=== PATIENT | female | born 1940 | race Caucasian/White ===

== ENCOUNTER 2021-04-12 18:58 | Emergency (ER) | payer MEDICAID, SELFPAY ==
[2021-04-12 19:05] VITALS: BP 138/72; PULSE 72; RESP 16; TEMP 36.8; O2SAT 97; BMI 19.5
--- NOTE | 2021-04-12 19:16 | W.ED.GENADLT ---
Documented by User: Elaina Graham MD 04/22/21 23:45 HPI - General Adult General: Chief complaint: Neck Pain/Injury Stated complaint: neck pain, n/v Time Seen by Provider: 04/12/21 19:16 History of Present Illness: HPI narrative: Patient is an 80-year-old female with no known past medical history presents emergency room with 3 days of persistent bilateral neck pain. Patient tells me she woke up 3 days ago with complaints of bilateral neck pain. Patient has pain with turning of head to either direction. Patient denies any fall, injuries, history of aneurysm, fever/chills, focal weakness, or numbness. Patient went to see her primary care provider was right muscle relaxer. Patient's pain has not improved and presents to the emergency room for evaluation. Patient has no associated chest pain, shortness breath, palpitation, abdominal complaints, nausea/vomiting, diarrhea, melena/hematochezia, complaints, headache, photophobia slurring of speech, facial droop or focal weakness. Onset: 3 days ago Duration:3 days Location:home Severity:moderate Review of Systems Narrative: Constitutional: No fever, no chills. HEENT: No vision changes, +neck pain b/l CV: No chest pain, no palpitations PULM: no cough, no dyspnea. GI: No abdominal pain, no N/V/D. : No dysuria MSKEL: No muscle pain SKIN: No new rashes, no lesions. NEURO: No headache, no focal weakness. HEME: No visible bruises PSYCH: Normal mood Physical Exam Narrative: EXAM NARRATIVE: Head: Atraumatic Eyes: PERRL, conjunctiva without injection ENT: Mucous membrane moist NECK: Supple, ROM intact, mild pain with turning of the neck, no meningismus LUNGS: LCTAB, no crackles/rhonchi CV: RRR ABDOMEN: Soft, nontender in all quadrants EXTREMITY: Normal ROM SKIN: No rash or erythema NEURO: Mental status? Awake, alert, and oriented to self, year, month, location, and situation.? Following simple axial and appendicular commands.? Has appropriate fund of knowledge, comprehension, and insight.? Able to recall and understands pertinent aspects of medical history and current treatment status.? ? Language? Speech is fluent without word-finding difficulties.? Intact naming, expression, shredder picker, and repetition.? ? Cranial nerves? 2,3,4,6: PERRL, EOMI with no nystagmus. 5: Intact sensation to light touch, symmetric? 7: Smile symmetrical, no facial droop.? 8: Hearing grossly intact.? 9,10: Normal palate movement.? 11: Normal strength in trapezius bilaterally 12: Tongue protrudes midline.? ? Motor examination? Normal bulk & tone. Strength as follows (R/L): Delts (5/5), Biceps (5/5), Triceps (5/5), Wrist ext (5/5), hip flexors (5/5), plantarflexors (5/5), dorsiflexors (5/5). Sensation? Light Touch: Grossly intact and equal in upper and lower extremities bilaterally? Romberg: Negative.? Distal joint position sense intact ? Coordination? [id number]-finger movements intact without dysmetria or past-pointing.? Rapid fingertaps: preserved amplitude without decriment.? No tremor, myoclonus or truncal ataxia.? ? Gait/stance? Steady, normal narrow base gait with appropriate arm swing and turning.? Tandem gait without hesitation or loss of balance. PSYCH: Normal mood and affect Course Vital Signs: Vital signs: Vital Signs Temperature 98.3 F 04/12/21 19:05 Pulse Rate 72 04/13/21 01:02 Respiratory Rate 17 04/13/21 01:02 Blood Pressure 127/78 04/13/21 01:02 Pulse Oximetry 99 04/13/21 01:02 MDM - General Adult MDM Narrative: Medical decision making narrative: 80-year-old female presents emergency room with concerns of bilateral neck pain x3 days not improving with muscle relaxer. Exam, patient is hemodynamically stable, afebrile, no signs of meningismus on exam. Neuro exam is intact. No suspicion for ACS or unstable angina at this time. No suspicion for acute stroke. CTA neck and neck did not show any signs of any dissection, or acute vascular occlusion. At the present time given the fact the patient is afebrile, does not have leukocytosis, do not suspect this is meningitis. Also no suspicion of subarachnoid bleed given no aneurysms on CT report. Rx lidocaine patch, menthol, and tylenol PRN pain Disposition: Discharge. Patient counseled regarding diagnostic impression, treatment plan. Patient given ED strict return precautions to return for continuation, worsening, or development of new symptoms. Instructed to f/u w/ PCP regarding symptoms today. Patient verbalized understanding. Lab Data: Labs: Lab Results 04/12/21 04/12/21 23:20 23:20 WBC 4.7 10^3/uL 10^3/ uL (4.0-10.0) RBC 4.48 10^6/uL 10^6 /uL (4.1-5.3) Hgb 11.3 g/dL L g/dL (11.5-15.3) Hct 35.3 % L % (37.0-47.0) MCV 78.8 fl L fl (81-99) MCH 25.2 pg L pg (28.0-34.0) MCHC 32.0 g/dL g/dL (30.0-36.0) RDW 15.7 % H % (12.1-15.1) Plt Count 227 10^3/cmm 10^3 /cmm (130-400) MPV 10.1 fL fL (7.4-10.4) Neut % (Auto) 77.8 % % Lymph % (Auto) 16.0 % % [place] % (Auto) 5.6 % % Eos % (Auto) 0.0 % % Baso % (Auto) 0.2 % % Neut # (Auto) 3.64 10^3/uL 10^3 /uL (1.8-7.7) Lymph # (Auto) 0.8 10^3/uL 10^3/ uL (0.8-4.8) [place] # (Auto) 0.3 10^3/uL 10^3/ uL (0.2-0.9) Eos # (Auto) 0.0 10^3/uL 10^3/ uL (0.0-0.8) Baso # (Auto) 0.0 10^3/uL 10^3/ uL (0.0-0.1) Nucleated RBC % (a uto) 0 % % Nucleated RBCs # 0.0 /100WBC /100W BC Sodium 141 mmol/L mmol/L (136-145) Potassium 3.7 mmol/L mmol/L (3.5-5.1) Chloride 106 mmol/L mmol/L (98-107) Carbon Dioxide 24 mmol/L mmol/L (22-29) Anion Gap 14.7 (5-19) BUN 10 mg/dL mg/dL (8-23) Creatinine 0.6 mg/dL mg/dL (0.5-0.9) GFR Calculation Not Reportable Glucose 103 mg/dL mg/dL (65-115) Calculated Osmolal ity 291 mOsm/kg mOsm/ kg (285-295) Calcium 8.8 mg/dL mg/dL (8.5-10.5) Discharge Plan Discharge Patient Disposition: Home Clinical Impression: Neck pain Condition: Stable Discharge Orders: Discharge ED (Routine); Ordered 04/13/21 Ordered By: Ralf Summers Referrals: Glai Figueroa FNP [Primary Care Provider] - 1-3 days Discharge Diet: Advance as tolerated Discharge Activity: Resume usual activity Patient Instructions: Neck Pain (ED) Activity Restrictions/Additional Instructions: Return for fever greater than 100, worsening pain despite treatment, loss of strength in upper or lower extremities, other concerning symptoms. Coding Level of Care Code ED Electronic Integrated Systems Mechanic for Chg Fwd Documented by User: Ralf Summers DO 04/13/21 01:29 HPI - General Adult General: Chief complaint: Neck Pain/Injury Stated complaint: neck pain, n/v Time Seen by Provider: 04/12/21 19:16 Course Vital Signs: Vital signs: Vital Signs Temperature 98.3 F 04/12/21 19:05 Pulse Rate 72 04/13/21 01:02 Respiratory Rate 17 04/13/21 01:02 Blood Pressure 127/78 04/13/21 01:02 Pulse Oximetry 99 04/13/21 01:02 MDM - General Adult MDM Narrative: Medical decision making narrative: See above. Lab Data: Labs: Lab Results 04/12/21 04/12/21 23:20 23:20 WBC 4.7 10^3/uL 10^3/ uL (4.0-10.0) RBC 4.48 10^6/uL 10^6 /uL (4.1-5.3) Hgb 11.3 g/dL L g/dL (11.5-15.3) Hct 35.3 % L % (37.0-47.0) MCV 78.8 fl L fl (81-99) MCH 25.2 pg L pg (28.0-34.0) MCHC 32.0 g/dL g/dL (30.0-36.0) RDW 15.7 % H % (12.1-15.1) Plt Count 227 10^3/cmm 10^3 /cmm (130-400) MPV 10.1 fL fL (7.4-10.4) Neut % (Auto) 77.8 % % Lymph % (Auto) 16.0 % % [place] % (Auto) 5.6 % % Eos % (Auto) 0.0 % % Baso % (Auto) 0.2 % % Neut # (Auto) 3.64 10^3/uL 10^3 /uL (1.8-7.7) Lymph # (Auto) 0.8 10^3/uL 10^3/ uL (0.8-4.8) [place] # (Auto) 0.3 10^3/uL 10^3/ uL (0.2-0.9) Eos # (Auto) 0.0 10^3/uL 10^3/ uL (0.0-0.8) Baso # (Auto) 0.0 10^3/uL 10^3/ uL (0.0-0.1) Nucleated RBC % (a uto) 0 % % Nucleated RBCs # 0.0 /100WBC /100W BC Sodium 141 mmol/L mmol/L (136-145) Potassium 3.7 mmol/L mmol/L (3.5-5.1) Chloride 106 mmol/L mmol/L (98-107) Carbon Dioxide 24 mmol/L mmol/L (22-29) Anion Gap 14.7 (5-19) BUN 10 mg/dL mg/dL (8-23) Creatinine 0.6 mg/dL mg/dL (0.5-0.9) GFR Calculation Not Reportable Glucose 103 mg/dL mg/dL (65-115) Calculated Osmolal ity 291 mOsm/kg mOsm/ kg (285-295) Calcium 8.8 mg/dL mg/dL (8.5-10.5) Discharge Plan Discharge Patient Disposition: Home Clinical Impression: Neck pain Condition: Stable Discharge Orders: Discharge ED (Routine); Ordered 04/13/21 Ordered By: Ralf Summers Referrals: Gali Figueroa FNP [Primary Care Provider] - 1-3 days Discharge Diet: Advance as tolerated Discharge Activity: Resume usual activity Patient Instructions: Neck Pain (ED) Activity Restrictions/Additional Instructions: Return for fever greater than 100, worsening pain despite treatment, loss of strength in upper or lower extremities, other concerning symptoms. Coding Level of Care Code ED Electronic Integrated Systems Mechanic for Kaleb Patino
[2021-04-12 20:52] VITALS: BP 139/86; PULSE 69; RESP 18; O2SAT 100
--- NOTE | 2021-04-12 21:12 | CTR_ITS ---
PROCEDURE INFORMATION: Exam: CT Head Without Contrast Exam date and time: 04/12/2021 9:12 PM Age: 80 years old Clinical indication: Other: Neck pain; Additional info: Eval brain bleed TECHNIQUE: Imaging protocol: Computed tomography of the head without contrast. Radiation optimization: All CT scans at this facility use at least one of these dose optimization techniques: automated exposure control; mA and/or kV adjustment per patient size (includes targeted exams where dose is matched to clinical indication); or iterative reconstruction. COMPARISON: No relevant prior studies available. RADIATION DOSE METRICS: Total DLP (mGy-cm): 738.34 FINDINGS: Brain: Diffuse moderate cerebral age related volume loss. Moderate patchy low attenuation in the white matter compatible with moderate chronic small vessel ischemic disease. No midline shift, mass, fluid collection, or evidence of hemorrhage. Cerebral ventricles: Ventricular enlargement proportional to volume loss. Paranasal sinuses: Visualized sinuses are unremarkable. No fluid levels. Mastoid air cells: Visualized mastoid air cells are well aerated. Orbital cavity: Right globe possible silicone injection chronic deformity. Bones/joints: Unremarkable. No acute fracture. Soft tissues: Unremarkable. CT/CT head wo con* [id number] IMPRESSION: Moderate involutional changes, no acute intracranial abnormality. Radiation Dose CTDIVOL = (mGy): DLP = 738.34 (mGy-cm)
--- NOTE | 2021-04-12 21:12 | CTR_ITS ---
PROCEDURE INFORMATION: Exam: CT Angiography Head With Contrast, Arteriography Exam date and time: 04/12/2021 9:12 PM Age: 80 years old Clinical indication: Other: Neck pain; Additional info: Eval sah and dissection TECHNIQUE: Imaging protocol: Computed tomography angiography of the head with contrast. Exam focused on the arteries. 3D rendering (Not supervised by radiologist): MIP and/or 3D reconstructed images were created by the technologist. Radiation optimization: All CT scans at this facility use at least one of these dose optimization techniques: automated exposure control; mA and/or kV adjustment per patient size (includes targeted exams where dose is matched to clinical indication); or iterative reconstruction. Contrast material: OMNI 350; Contrast volume: 75 ml; Contrast route: INTRAVENOUS (IV); COMPARISON: CT head wo con* [id number] 2021-04-13 00:17 RADIATION DOSE METRICS: Total DLP (mGy-cm): 943.94 FINDINGS: ANTERIOR CIRCULATION: Right internal carotid artery: Unremarkable. Intracranial segment is patent with no significant stenosis. No aneurysm. Right middle cerebral artery: Mild right MCA atherosclerotic narrowing. Right anterior cerebral artery: Unremarkable. No occlusion or significant stenosis. No aneurysm. Left internal carotid artery: Unremarkable. Intracranial segment is patent with no significant stenosis. No aneurysm. Left middle cerebral artery: Minimal left MCA atherosclerotic narrowing. Left anterior cerebral artery: Unremarkable. No occlusion or significant stenosis. No aneurysm. POSTERIOR CIRCULATION: Right vertebral artery: Unremarkable. No occlusion or significant stenosis. No aneurysm. Left vertebral artery: Unremarkable. No occlusion or significant stenosis. No aneurysm. Basilar artery: Unremarkable. No occlusion or significant stenosis. No aneurysm. Right posterior cerebral artery: Unremarkable. No occlusion or significant stenosis. No aneurysm. Left posterior cerebral artery: Unremarkable. No occlusion or significant stenosis. No aneurysm. Brain: No definite mass, mass effect, or midline shift. Cerebral ventricles: No ventriculomegaly. Bones/joints: Unremarkable. No acute fracture. Soft tissues: Unremarkable. Dental: Severe dental disease. IMPRESSION: 1. No large vessel occlusion or significant high-grade stenosis. 2. Severe dental disease. PROCEDURE INFORMATION: Exam: CT Angiography Neck With Contrast Exam date and time: 04/12/2021 9:12 PM Age: 80 years old Clinical indication: Other: Neck pain; Additional info: Eval sah and dissection TECHNIQUE: Imaging protocol: Computed tomography angiography of the neck with contrast. 3D rendering (Not supervised by radiologist): MIP and/or 3D reconstructed images were created by the technologist. Radiation optimization: All CT scans at this facility use at least one of these dose optimization techniques: automated exposure control; mA and/or kV adjustment per patient size (includes targeted exams where dose is matched to clinical indication); or iterative reconstruction. Contrast material: OMNI 350; Contrast volume: 75 ml; Contrast route: INTRAVENOUS (IV); COMPARISON: CT head wo con* [id number] 2021-04-13 00:17 RADIATION DOSE METRICS: Total DLP (mGy-cm): 943.94 FINDINGS: Right common carotid artery: No stenosis. No dissection or occlusion. Right internal carotid artery: No stenosis of the extracranial segment. No dissection or occlusion. Right external carotid artery: No occlusion or stenosis of the origin. Left common carotid artery: Mild soft plaque in the distal left common carotid artery. Left internal carotid artery: No stenosis of the extracranial segment. No dissection or occlusion. Left external carotid artery: No occlusion or stenosis of the origin. Right vertebral artery: No stenosis. No dissection or occlusion. Left vertebral artery: No stenosis. No dissection or occlusion. Soft tissues: Normal. No significant soft tissue swelling. Bones/joints: No acute fracture. CT/CT angio headneck* [id number] IMPRESSION: No acute abnormality. REFERENCES: NASCET CRITERIA. The degree of internal carotid artery stenosis is based on NASCET criteria. Normal is no stenosis. Mild is less than 50% stenosis. Moderate is 50-69% stenosis. Severe is 70% to 99% stenosis. Total occlusion is no detectable patent lumen. Radiation Dose CTDIVOL = (mGy): DLP = 943.94~943.94 (mGy-cm)
[2021-04-12] MEDS: acetaminophen 500 mg Tablet 1000 MG PO (21:23)
[2021-04-12 23:24] LABS: Basophils % 0.2 %; Hematocrit 35.3 % (37.0-47.0); Hemoglobin 11.3 g/dL (11.5-15.3); Lymphocytes # 0.8 10^3/uL (0.8-4.8); Mean Corpuscular Hemoglobin 25.2 pg (28.0-34.0); Mean Corpuscular Volume 78.8 fl (81-99); Mean Platelet Volume 10.1 fL (7.4-10.4); Monocytes # 0.3 10^3/uL (0.2-0.9); Monocytes % 5.6 %; Neutrophils # 3.64 10^3/uL (1.8-7.7); Neutrophils % 77.8 %; Nucleated Red Blood Cells % 0 %; Platelet Count 227 10^3/cmm (130-400); Red Blood Count 4.48 10^6/uL (4.1-5.3); Red Cell Distribution Width 15.7 % (12.1-15.1); White Blood Count 4.7 10^3/uL (4.0-10.0)
[2021-04-12 23:44] LABS: Anion Gap 14.7 (5-19); Blood Urea Nitrogen 10 mg/dL (8-23); Calcium 8.8 mg/dL (8.5-10.5); Carbon Dioxide 24 mmol/L (22-29); Chloride 106 mmol/L (98-107); Glucose 103 mg/dL (65-115); Osmolality Calculated 291 mOsm/kg (285-295); Potassium 3.7 mmol/L (3.5-5.1); Sodium 141 mmol/L (136-145)
[2021-04-12 23:59] VITALS: BP 117/65; PULSE 65; RESP 17; O2SAT 99
[2021-04-13] MEDS: iohexol 350 mg/mL 100 mL Btl IV (00:23)
[2021-04-13 01:02] VITALS: BP 127/78; PULSE 72; RESP 17; O2SAT 99
== END 2021-04-13 01:18 | disposition home or self-care (01) ==
PROVIDERS: Emergency Medicine; Emergency Provider Emergency Medicine; PCP Nurse Practitioner
DX: M54.2 Cervicalgia (principal)
CPT/HCPCS: 70450; 70496; 70498; 80048; 85025; 99283; Q9967

== ENCOUNTER 2021-10-24 09:54 | Emergency (ER) | payer MEDICAID, SELFPAY ==
[2021-10-24 10:00] VITALS: BP 151/76; PULSE 78; RESP 14; TEMP 36.2; O2SAT 98
--- NOTE | 2021-10-24 10:00 | CTR_ITS ---
PROCEDURE INFORMATION: Exam: CT Abdomen And Pelvis Without Contrast Exam date and time: 10/24/2021 10:21 AM Age: 81 years old Clinical indication: Abdominal pain; Localized; Left lower quadrant (llq); Additional info: Llq pain TECHNIQUE: Imaging protocol: Computed tomography of the abdomen and pelvis without contrast. Radiation optimization: All CT scans at this facility use at least one of these dose optimization techniques: automated exposure control; mA and/or kV adjustment per patient size (includes targeted exams where dose is matched to clinical indication); or iterative reconstruction. COMPARISON: CR Abdomen Series Acute [id number] 12/29/2017 11:48 AM RADIATION DOSE METRICS: Total DLP (mGy-cm): 498.15 FINDINGS: Lungs: Calcified granuloma in the right lower lobe. Diaphragm: Large hiatal hernia. Liver: Normal. No mass. Gallbladder and bile ducts: Normal. No calcified stones. No ductal dilation. Pancreas: Normal. No ductal dilation. Spleen: Normal. No splenomegaly. Adrenal glands: Normal. No mass. Kidneys and ureters: Tiny nonobstructing right renal calculi. Mild left hydroureteronephrosis secondary to a 2 mm calculus at the left ureterovesical junction. A parenchymal calcification is seen in the left kidney. Stomach and bowel: Unremarkable. No obstruction. No mucosal thickening. Appendix: No evidence of appendicitis. Intraperitoneal space: Unremarkable. No free air. No significant fluid collection. Vasculature: Unremarkable. No abdominal aortic aneurysm. Lymph nodes: Unremarkable. No enlarged lymph nodes. Urinary bladder: Unremarkable as visualized. Reproductive: Calcified uterine fibroids. Bones/joints: Osteopenia. Remote compression fracture involving the superior endplate of L1. Soft tissues: Unremarkable. CT/CT kidney stone [id number] IMPRESSION: Mild left hydroureteronephrosis secondary to a 2 mm calculus at the left ureterovesical junction.
--- NOTE | 2021-10-24 10:03 | ED_ITS ---
HPI - Abdominal Pain General: Chief Complaint: Abdominal Pain Stated Complaint: LLQ ABD PAIN Time Seen by Provider: 10/24/21 09:57 Source: patient and EMS Mode of arrival: EMS Limitations: no limitations History of Present Illness: 81-year-old female who states this morning she started having severe left lower quadrant left flank pain. States that it lasted roughly 4 hours she called EMS but she states that since last 30 minutes to an hour she has been completely pain-free. States the pain just suddenly resolved she had no pain she has had some difficulty urinating no vomiting no diarrhea no fever. Associated Symptoms: Denies chills, dysuria and fever(s) Review of Systems Const: Denies: fever(s), chills, body aches or change in appetite Eyes: Denies: blurry vision or eye discomfort ENMT: Denies: throat pain or dental pain Card: Denies: chest pain Resp: Denies: dyspnea GI: Reports: abdominal pain : Denies: dysuria Musc: Denies: neck pain or back pain Skin/Breast: Denies: rash Neuro: Denies: headache(s) Psych: Denies: depression Antony/Lymph: Denies: easy bruising All/Imm: Denies: urticaria PFSH ED PFSH: Medical History (Updated 10/24/21 @ 10:57 by Nohemi Hull MD) No pertinent past medical history Social History (Updated 10/24/21 @ 10:04 by Nohemi Hull MD) Substance/Drug Use: never Physical Exam Const: COMMON NORMALS: no acute distress, patient oriented x3 and healthy appearing HENMT: COMMON NORMALS: normocephalic and atraumatic HEAD & SCALP: normocephalic and atraumatic Eye: COMMON NORMALS: Equal, round and reactive pupils present and EOMs intact bilaterally PUPIL: Yes Equal, round and reactive pupils present Neck/C-Spine: COMMON NORMALS: full ROM and supple Chest: COMMONS NORMALS: normal inspection of the chest and normal palpation of entire chest wall Resp: COMMON NORMALS: normal respiratory effort, No retractions, No use of accessory muscles and clear to auscultation bilaterally AUSCULTATION: clear to auscultation bilaterally Cardio: COMMON NORMALS: regular rate, regular rhythm and No murmurs present (Cardio) RATE: regular rate RHYTHM: regular rhythm GI: COMMON NORMALS: Normal to inspection, nondistended, normoactive bowel sounds present, Soft to palpation, non-tender and no masses PALPATION: Yes Soft to palpation Extremity: COMMON NORMALS: normal to inspection and full ROM Neuro: COMMON NORMALS: patient oriented x3, moves all extremities and no focal motor deficits Psych: COMMON NORMALS: mental status grossly normal, Normal thought process present and cooperative THOUGHT PROCESS: Normal thought process present Skin: COMMON NORMALS: no rashes or lesions noted and no wounds GENERAL SKIN EXAM: no rashes or lesions noted Course Vital Signs: Vital signs: Vital Signs Temperature 97.1 F L 10/24/21 10:00 Pulse Rate 78 10/24/21 10:00 Respiratory Rate 14 10/24/21 10:00 Blood Pressure 151/76 10/24/21 10:00 Pulse Oximetry 98 10/24/21 10:00 MDM - Abdominal Pain Medical Decision Making Patient presents here with kidney stone. Her pain has been resolved here she is well-appearing here no signs of UTI she is stable for discharge follow-up with her PCP and return if worsening she understands agrees to plan. Lab Data : 10/24/21 10:30 10/24/21 10:30 Labs/Radiology: Radiology Impressions Abdomen/Pelvis CT 10/24/21 10:00 IMPRESSION: Mild left hydroureteronephrosis secondary to a 2 mm calculus at the left ureterovesical junction. Laboratory Results WBC 6.6 10^3/uL (4.0-10.0) 10/24/21 10:30 RBC 4.87 10^6/uL (4.1-5.3) 10/24/21 10:30 Hgb 12.6 g/dL (11.5-15.3) 10/24/21 10:30 Hct 39.1 % (37.0-47.0) 10/24/21 10:30 MCV 80.3 fl (81-99) L 10/24/21 10:30 MCH 25.9 pg (28.0-34.0) L 10/24/21 10:30 MCHC 32.2 g/dL (30.0-36.0) 10/24/21 10:30 RDW 21.4 % (12.1-15.1) H 10/24/21 10:30 Plt Count 259 10^3/cmm (130-400) 10/24/21 10:30 MPV 9.5 fL (7.4-10.4) 10/24/21 10:30 Neut % (Auto) 82.7 % 10/24/21 10:30 Lymph % (Auto) 12.3 % 10/24/21 10:30 [place] % (Auto) 3.8 % 10/24/21 10:30 Eos % (Auto) 0.3 % 10/24/21 10:30 Baso % (Auto) 0.3 % 10/24/21 10:30 Neut # (Auto) 5.44 10^3/uL (1.8-7.7) 10/24/21 10:30 Lymph # (Auto) 0.8 10^3/uL (0.8-4.8) 10/24/21 10:30 [place] # (Auto) 0.3 10^3/uL (0.2-0.9) 10/24/21 10:30 Eos # (Auto) 0.0 10^3/uL (0.0-0.8) 10/24/21 10:30 Baso # (Auto) 0.0 10^3/uL (0.0-0.1) 10/24/21 10:30 Nucleated RBC % (auto) 0 % 10/24/21 10:30 Nucleated RBCs # 0.0 /100WBC 10/24/21 10:30 Sodium 142 mmol/L (136-145) 10/24/21 10:30 Potassium 4.1 mmol/L (3.5-5.1) 10/24/21 10:30 Chloride 106 mmol/L (98-107) 10/24/21 10:30 Carbon Dioxide 23 mmol/L (22-29) 10/24/21 10:30 Anion Gap 17.1 (5-19) 10/24/21 10:30 BUN 17 mg/dL (8-23) 10/24/21 10:30 Creatinine 1.0 mg/dL (0.5-0.9) H 10/24/21 10:30 GFR Calculation Not Reportable 10/24/21 10:30 Glucose 130 mg/dL (65-115) H 10/24/21 10:30 Calculated Osmolality 297 mOsm/kg (285-295) H 10/24/21 10:30 Calcium 9.1 mg/dL (8.5-10.5) 10/24/21 10:30 Total Bilirubin 0.2 mg/dL (0.15-1.2) 10/24/21 10:30 AST 14 U/L (0-32) 10/24/21 10:30 ALT 16 U/L (0-33) 10/24/21 10:30 Alkaline Phosphatase 74 IU/L (35-105) 10/24/21 10:30 Total Protein 6.8 g/dL (6.6-8.7) 10/24/21 10:30 Albumin 4.3 g/dL (3.5-5.2) 10/24/21 10:30 Globulin 2.5 g/dL (1.3-4.6) 10/24/21 10:30 Lipase 46 U/L (13-60) 10/24/21 10:30 Urine Color Yellow (Yellow) 10/24/21 11:04 Urine Appearance Clear (CLEAR) 10/24/21 11:04 Urine pH 6 (5-7) 10/24/21 11:04 Ur Specific [place] 1.015 (1.005-1.030) 10/24/21 11:04 Urine Protein Neg (Negative) 10/24/21 11:04 Urine Glucose (UA) Norm (Normal) 10/24/21 11:04 Urine Ketones Negative (Negative) 10/24/21 11:04 Urine Blood Neg (Negative) 10/24/21 11:04 Urine Nitrate Negative (Negative) 10/24/21 11:04 Urine Bilirubin Neg (Negative) 10/24/21 11:04 Urine Urobilinogen 1 mg/dL (Negative) H 10/24/21 11:04 Ur Leukocyte Esterase Trace (Negative) H 10/24/21 11:04 Urine RBC None /hpf (0-2) 10/24/21 11:04 Urine WBC 10-15 /hpf (0-5) H 10/24/21 11:04 Ur Squamous Epith Cells Rare /hpf (0-5) 10/24/21 11:04 Amorphous Sediment Not Reportable 10/24/21 11:04 Urine Bacteria Trace /hpf (NONE) 10/24/21 11:04 Urine Mucus Trace /hpf 10/24/21 11:04 Discharge Plan Discharge Patient Disposition: Home Clinical Impression: Kidney stone Prescriptions: New hydrocodone-acetaminophen 5-325 mg tablet 1 tab PO Q6H PRN (Reason: pain) Qty: 14 0RF ondansetron 4 mg tablet,disintegrating 4 mg PO Q6H PRN (Reason: nausea and vomiting) Qty: 14 0RF Discharge Orders: Discharge ED (Routine); Ordered 10/24/21 Ordered By: Nohemi Hull Referrals: Colin Brunner MD [Physician] - 1-3 days Gali Figueroa FNP [Primary Care Provider] - Discharge Diet: Advance as tolerated Discharge Activity: Resume usual activity Patient Instructions: Kidney Stones (ED), Opioid Safety Coding Level of Care Code ED Solar Project Engineer for Chg Fwd Exam Comprehensive
[2021-10-24 10:38] LABS: Basophils % 0.3 %; Eosinophils % 0.3 %; Hematocrit 39.1 % (37.0-47.0); Hemoglobin 12.6 g/dL (11.5-15.3); Lymphocytes # 0.8 10^3/uL (0.8-4.8); Lymphocytes % 12.3 %; Mean Corpuscular HGB Conc 32.2 g/dL (30.0-36.0); Mean Corpuscular Hemoglobin 25.9 pg (28.0-34.0); Mean Corpuscular Volume 80.3 fl (81-99); Mean Platelet Volume 9.5 fL (7.4-10.4); Monocytes # 0.3 10^3/uL (0.2-0.9); Monocytes % 3.8 %; Neutrophils # 5.44 10^3/uL (1.8-7.7); Neutrophils % 82.7 %; Nucleated Red Blood Cells % 0 %; Platelet Count 259 10^3/cmm (130-400); Red Blood Count 4.87 10^6/uL (4.1-5.3); Red Cell Distribution Width 21.4 % (12.1-15.1); White Blood Count 6.6 10^3/uL (4.0-10.0)
[2021-10-24 10:54] LABS: Alanine Aminotransferase 16 U/L (0-33); Albumin Level 4.3 g/dL (3.5-5.2); Alkaline Phosphatase 74 IU/L (35-105); Anion Gap 17.1 (5-19); Aspartate Amino Transferase 14 U/L (0-32); Blood Urea Nitrogen 17 mg/dL (8-23); Calcium 9.1 mg/dL (8.5-10.5); Carbon Dioxide 23 mmol/L (22-29); Chloride 106 mmol/L (98-107); Globulin 2.5 g/dL (1.3-4.6); Glucose 130 mg/dL (65-115); Lipase 46 U/L (13-60); Osmolality Calculated 297 mOsm/kg (285-295); Potassium 4.1 mmol/L (3.5-5.1); Sodium 142 mmol/L (136-145); Total Bilirubin 0.2 mg/dL (0.15-1.2); Total Protein 6.8 g/dL (6.6-8.7)
[2021-10-24 11:18] LABS: Add Urine Microscopic? YES; Bilirubin Urine Neg (Negative); Blood Urine Neg (Negative); Glucose Urine UA Norm (Normal); Ketones Urine Negative (Negative); Leukocyte Esterase Urine Trace (Negative); Nitrate Urine Negative (Negative); Protein Urine Neg (Negative); Specific Gravity, Urine 1.015 (1.005-1.030); Urine Appearance Clear (CLEAR); Urine Color Yellow (Yellow); Urobilinogen Urine 1 mg/dL (Negative); pH Urine 6 (5-7)
[2021-10-24 11:19] LABS: Squamous Epithelial Cell Urine RARE /hpf (0-5)
[2021-10-24 11:20] LABS: Add Urine Culture? No; Bacteria Urine TRACE /hpf; Mucus Urine TRACE /hpf
[2021-10-24 11:56] VITALS: BP 156/83; PULSE 68; RESP 17; O2SAT 94
--- NOTE | 2021-10-26 13:06 | DCPLANNER ---
Addendum entered by Analilia Armstrong 12/23/21 15:46: Patients appointment was cancelled Original Note: manager operations research had message to schedule a follow up appointment for patient with urology. manager operations research sent patients information to the front office staff at urology. Patients information will be printed and reviewed. Clinic will call patient with appointment information.
== END 2021-10-24 11:54 | disposition home or self-care (01) ==
PROVIDERS: Emergency Provider Emergency Medicine; PCP Nurse Practitioner
DX: N20.0 Calculus of kidney (principal)
CPT/HCPCS: 74176; 80053; 81001; 83690; 85025; 99283

== ENCOUNTER 2025-01-08 23:06 | Emergency (ER) | payer MEDICAID, SELFPAY ==
--- OUTSIDE RECORDS SUMMARY | 2025-01-08 23:14 | XMS_ITS | Encounter Summary ---
Author Organization [facility] Address [address] [place] [address] Care Team Providers Care Game Show Host Name Role Phone Gali Figueroa BIOMEDICAL ENGINEERING TECHNOLOGIST Primary Care Provider Encounter Details Date Type Department Care Team (Latest Contact Info) Description 10/27/[address] [facility] Ophthalmology [address] [place] [address] [place] [address] [place] [phone] Sinan Kaplan MD [address] [place] [address] [phone] Retinal Detachment with Retinal Defect, Unspecified (Primary Dx); Unspecified Senile Cataract Social History Tobacco Use Types Packs/Day Years Used Date Smoking Tobacco: Never Assessed Comments Unknown Sex and Gender Information Value Date Recorded Sex Assigned at Not on file Legal Sex Female 4:42 AM AIR DEFENSE ARTILLERY OFFICER Gender Identity Not on file Sexual Orientation Not on file documented as of this encounter Plan of Treatment Not on file documented as of this encounter Visit Diagnoses Diagnosis Retinal detachment with retinal defect, unspecified- Primary Senile cataract, unspecified documented in this encounter Care Teams Game Show Host Relationship Specialty Start Date End Date Gali Figueroa NP PCP - General NURSE PRACTITIONER 07/05/17 documented as of this encounter
--- OUTSIDE RECORDS SUMMARY | 2025-01-08 23:14 | XMS_ITS | Encounter Summary ---
Author Organization [facility] Address [address] [place] [address] Care Team Providers Care Manganese Heater Name Role Phone Gali Figueroa SAFETY LEADER Primary Care Provider +1 [phone] Encounter Details Date Type Department Care Team (Latest Contact Info) Description 11/20/2004 Outpatient Historical [facility] Ophthalmology [address] [place] [address] [place] [phone] Sinan Kaplan MD [address] [place] [address] [phone] DETACHMNT W DEFECT NOS (Primary Dx) Social History Tobacco Use Types Packs/Day Years Used Date Smoking Tobacco: Never Assessed Comments Unknown Sex and Gender Information Value Date Recorded Sex Assigned at Not on file Legal Sex Female 4:42 AM GERIATRIC SOCIAL WORKER Gender Identity Not on file Sexual Orientation Not on file documented as of this encounter Plan of Treatment Not on file documented as of this encounter Visit Diagnoses Diagnosis Retinal detachment with retinal defect, unspecified- Primary documented in this encounter Care Teams Manganese Heater Relationship Specialty Start Date End Date Gali Figueroa NP PCP - General NURSE PRACTITIONER 07/05/17 documented as of this encounter
--- OUTSIDE RECORDS SUMMARY | 2025-01-08 23:14 | XMS_ITS | Encounter Summary ---
Author Organization [facility] Address [address] [place] [address] Care Team Providers Care Anchorman Name Role Phone Gali Figueroa HAIR CLIPPER POWER Primary Care Provider [phone] [phone] Encounter Details Date Type Department Care Team (Latest Contact Info) Description 11/13/2004 Outpatient Historical [facility] Ophthalmology [address] [place] [address] [place] [address] [place] [phone] Sinan Kaplan MD [address] [place] [address] [place] [phone] DETACHMNT W DEFECT NOS (Primary Dx) Social History Tobacco Use Types Packs/Day Years Used Date Smoking Tobacco: Never Assessed Comments Unknown Sex and Gender Information Value Date Recorded Sex Assigned at Not on file Legal Sex Female 4:42 AM EVENT PLANNING INTERN Gender Identity Not on file Sexual Orientation Not on file documented as of this encounter Plan of Treatment Not on file documented as of this encounter Visit Diagnoses Diagnosis Retinal detachment with retinal defect, unspecified- Primary documented in this encounter Care Teams Anchorman Relationship Specialty Start Date End Date Gali Figueroa NP PCP - General NURSE PRACTITIONER 07/05/17 documented as of this encounter
--- OUTSIDE RECORDS SUMMARY | 2025-01-08 23:14 | XMS_ITS | Encounter Summary ---
Author Organization [facility] Address [address] [place] [address] Care Team Providers Care Bartacker Name Role Phone Gali iFgueroa NP Primary Care Provider +1 [phone] Encounter Details Date Type Department Care Team (Latest Contact Info) Description 10/16/2004 Outpatient Historical [facility] [address] [place] [address] [place] [address] Shade Kaplan MD [address] [place] [address] PREOP EXAM OTHER SPECIFIED (Primary Dx) Social History Tobacco Use Types Packs/Day Years Used Date Smoking Tobacco: Never Assessed Comments Unknown Sex and Gender Information Value Date Recorded Sex Assigned at Not on file Legal Sex Female 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 HAND SALTER Gender Identity Not on file Sexual Orientation Not on file documented as of this encounter Plan of Treatment Not on file documented as of this encounter Procedures Procedure Name Priority Date/Time Associated Diagnosis Comments CBC WITHOUT DIFFERENTIAL Routine 10/16/2004 12:32 PM CDT COMPREHENSIVE METABOLIC PANEL Routine 10/16/2004 12:32 PM CDT documented in this encounter Results * (ABNORMAL) COMPREHENSIVE METABOLIC PANEL (10/16/2004 12:32 PM CDT) GLUCOSE 135(H) 70 - 110 mg/dL INTERFACE SYSTEM BUN 12 7 - 17 mg/dL INTERFACE SYSTEM CREATININE 0.7 0.7 - 1.2 mg/dL INTERFACE SYSTEM SODIUM 141 136 - 145 mEq/L INTERFACE SYSTEM POTASSIUM 3.9 3.5 - 5.0 mEq/L INTERFACE SYSTEM CO2 25 22 - 32 mmol/l INTERFACE SYSTEM CHLORIDE 106 95 - 110 mEq/L INTERFACE SYSTEM CALCIUM 8.9 8.4 - 10.5 mg/dL INTERFACE SYSTEM ALKALINE PHOSPHATASE 77 38 - 126 IU/L INTERFACE SYSTEM TOTAL PROTEIN 7.4 6.3 - 8.2 g/dL INTERFACE SYSTEM ALBUMIN 3.8 3.5 - 5.0 g/dL INTERFACE SYSTEM AST 26 14 - 36 IU/L INTERFACE SYSTEM ALT 18 9 - 52 IU/L INTERFACE SYSTEM BILIRUBIN TOTAL 0.2 0.2 - 1.4 mg/dL INTERFACE SYSTEM GLOBULIN (CALC) 3.6 2.4 - 3.9 g/dL INTERFACE SYSTEM ANION GAP 14 9 - 20 mEq/L INTERFACE SYSTEM ALBUMIN/GLOBULIN RATIO 1.1 1.0 - 2.3 INTERFACE SYSTEM OSMOLALITY, CALCULATED 291 275 - 295 mOsm/Kg INTERFACE SYSTEM 10/16/2004 12:3 2 PM CDT us X Yina Kaplan MD CHEMISTRY ORDERABLES Final Resu lt INTERFACE SYSTEM Refer to clinic/hospital department * (ABNORMAL) CBC WITHOUT DIFFERENTIAL (10/16/2004 12:32 PM CDT) WBC 4.5(L) 4.8 - 10.8 K/ul INTERFACE SYSTEM RBC 4.37 4.20 - 5.40 Mil/ul INTERFACE SYSTEM HEMOGLOBIN 12.2 12.0 - 16.0 g/dL INTERFACE SYSTEM HEMATOCRIT 37.5 36.0 - 46.0 % INTERFACE SYSTEM MCV 85.8 84.0 - 103.0 Fl INTERFACE SYSTEM MCH 27.9 27.0 - 34.0 pg INTERFACE SYSTEM MCHC 32.5 30.0 - 35.0 g/dL INTERFACE SYSTEM RDW 13.7 11.0 - 14.5 % INTERFACE SYSTEM PLATELETS 225 140 - 440 K/ul INTERFACE SYSTEM MPV 9.6 8.9 - 12.8 Fl INTERFACE SYSTEM NEUTROPHILS 64.5 42.2 - 75.2 % INTERFACE SYSTEM LYMPHOCYTES 26.7 24.0 - 44.0 % INTERFACE SYSTEM MONOCYTES 4.2 2.0 - 10.0 % INTERFACE SYSTEM EOSINOPHILS 4.2 0.0 - 7.0 % INTERFACE SYSTEM BASOPHILS 0.4 0.0 - 1.0 % INTERFACE SYSTEM NEUTROPHIL ABSOLUTE 2.9 2.0 - 8.0 K/uL INTERFACE SYSTEM LYMPHOCYTE ABSOLUTE 1.2 1.2 - 4.0 K/ul INTERFACE SYSTEM MONOCYTE ABSOLUTE 0.2 0.1 - 0.6 K/ul INTERFACE SYSTEM EOSINOPHIL ABSOLUTE 0.2 0.0 - 0.7 K/ul INTERFACE SYSTEM BASOPHILS ABSOLUTE 0.0 0.0 - 0.2 K/ul INTERFACE SYSTEM 10/16/2004 12:3 2 PM CDT us X Yina Kaplan MD HEMATOLOGY ORDERABLES Final Res ult INTERFACE SYSTEM Refer to clinic/hospital department documented in this encounter Visit Diagnoses Diagnosis Other specified pre-operative examination- Primary documented in this encounter Care Teams Bartacker Relationship Specialty Start Date End Date Gali Figueroa NP PCP - General NURSE PRACTITIONER 07/05/17 documented as of this encounter
--- OUTSIDE RECORDS SUMMARY | 2025-01-08 23:14 | XMS_ITS | Encounter Summary ---
Author Organization [facility] Address [address] [place] [address] Care Team Providers Care Public Health Representative Name Role Phone Gali Figueroa SLIP OPERATOR Primary Care Provider [phone] [phone] Encounter Details Date Type Department Care Team (Latest Contact Info) Description 07/15/2004 Outpatient Historical [facility] Ophthalmology [address] [place] [address] [place] [address] [place] [phone] Sinan Kaplan MD [address] 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
--- OUTSIDE RECORDS SUMMARY | 2025-01-08 23:14 | XMS_ITS | Encounter Summary ---
Author Organization [facility] Address [address] [place] [address] Care Team Providers Care Interventional Cardiologist Name Role Phone Gali Figueroa UNIVERSITY EXTENSION SPECIALIST Primary Care Provider +1 [phone] Encounter Details Date Type Department Care Team (Latest Contact Info) Description 06/29/2005 Outpatient Historical [facility] Ophthalmology [address] [place] [address] [place] [address] [place] [phone] Sinan Kaplan MD [address] [place] [address] [place] [address] [phone] DETACHMNT W DEFECT NOS (Primary Dx) Social History Tobacco Use Types Packs/Day Years Used Date Smoking Tobacco: Never Assessed Comments Unknown Sex and Gender Information Value Date Recorded Sex Assigned at Not on file Legal Sex Female 4:42 AM CURRENCY EXCHANGE SPECIALIST Gender Identity Not on file Sexual Orientation Not on file documented as of this encounter Plan of Treatment Not on file documented as of this encounter Visit Diagnoses Diagnosis Retinal detachment with retinal defect, unspecified- Primary documented in this encounter Care Teams Interventional Cardiologist Relationship Specialty Start Date End Date Gali Figueroa NP PCP - General NURSE PRACTITIONER 07/05/17 documented as of this encounter
--- OUTSIDE RECORDS SUMMARY | 2025-01-08 23:14 | XMS_ITS | Clinical Summary ---
Author Organization [facility] Address [address] [facility] Attn: Epic Prelude ADT [place] [address] Care Team Providers Care Gas Adjuster Name Role Phone Gali Figueroa SPORTING GOODS SALES ASSOCIATE Primary Care Provider +1 [phone] Allergies Active Allergy Reactions Criticality Noted Date Comments Pseudoephedrine Hcl Nausea and Vomiting Low 010 Medications amLODIPine (NORVASC) 5 mg tabletIndications :Unspecified essential hypertension Take 1 Tab by mouth daily. 30 Tablet 11 07/15/2014 Active lisinopriL (PRINIVIL) 20 mg tabletIndications :Unspecified essential hypertension Take 1 Tab (20 mg) by mouth daily. 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 Unspecified essential hypertension 06/27/2012 Bilateral hand pain 06/27/2012 Osteoarthritis 06/27/2012 Family History Medical History Relation Name Comments Heart Disease Brother Cancer Father Cancer Mother Heart Disease Son High Cholesterol Son Hypertension Son Stroke Son Relation Name Status Comments Brother Father Mother Son Alive Social History Tobacco Use Types Packs/Day Years Used Date Smoking Tobacco: Never Smokeless Tobacco: Current Alcohol Use Standard Drinks/Week Comments No 0 (1 standard drink = 0.6 oz pur e alcohol) Comments Unknown Sex and Gender Information Value Date Recorded Sex Assigned at Not on file Legal Sex Female 12:28 AM CLAIM PROFESSIONAL Gender Identity Not on file Sexual Orientation Not on file Last Filed Vital Signs Vital Sign Reading Time Taken Comments Blood Pressure 128/80 10/24/2017 1:25 PM CDT Pulse 62 10/24/2017 1:25 PM CDT Temperature 35.9 C (96.6 F) 10/24/2017 1:25 PM CDT Respiratory Rate - - Oxygen Saturation - - Inhaled Oxygen Concentration - - Weight 49 kg (108 lb) 11/03/2017 12:38 PM CDT Height 162.6 cm (5' 4 ) 11/03/2017 12:38 PM CDT Body Mass Index 18.54 11/03/2017 12:38 PM CDT Plan of Treatment Health Maintenance Due Date Last Done Comments DTAP/TDAP/TD VACCINES (1 - Tdap) 1958 PNEUMOCOCCAL VACCINE 50+ YEA RS (1 of 1 - PCV) 1989 ZOSTER VACCINE (1 of 2) 1989 RSV VACCINE (60+ or ) (1 - 1-dose 75+ series) 2014 OSTEOPOROSIS SCREENING 07/10/2017 07/10/2012, 2012 INFLUENZA VACCINE (#1) 2025 Procedures Procedure Name Priority Date/Time Associated Diagnosis Comments XR DEXA BONE DENSITY AXIAL 1 OR MORE SITES Routine 07/10/2012 12:17 PM CLAIM PROFESSIONAL Osteoporosis, post-menopausal from Last 3 Months or Most Recently Relevant to Health Maintenance Results * XR DEXA BONE DENSITY AXIAL 1 OR MORE SITES (07/10/2012 12:17 PM CLAIM PROFESSIONAL) Anatomical Region Laterality Modality Other Impressions 07/10/2012 2:00 PM CLAIM PROFESSIONAL Impression: The patient demonstrates osteoporosis of the lumbar spine and significant osteopenia of the left hip. This puts her at a significant increased risk for future fragility fracture in both regions. The level of osteopenia in the lumbar spine does represent a significant acceleration of bone mineral loss for patient's age. This could be secondary to a metabolic bone disease. Further diagnostic and therapeutic measures might be considered in an effort to prevent further bone mineral loss. Consideration might also be given to repeating this examination in approximately two years. Narrative 07/10/2012 2:00 PM CLAIM PROFESSIONAL DEXA Evaluation of the Lumbar Spine and Left Proximal Femur: Reason for Consultation: Status post menopause. Evaluation of bone mineral density. The following absorptiometry data were obtained. The overall technical quality of the study is good. Serial measurement number two. 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 She has at least 43% less mineral than the mean projected for a young normal, age 20 to 40. She demonstrates marked osteopenia of the neck region and moderate to marked osteopenia of the total hip region of the left hip. Procedure Note Flynn Stephen MD - 08/08/2022 DEXA Evaluation of the Lumbar Spine and Left Proximal Femur: Reason for Consultation: Status post menopause. Evaluation of bone mineral density. The following absorptiometry data were obtained. The overall technical quality of the study is good. Serial measurement number two. 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 She has at least 43% less mineral than the mean projected for a young normal, age 20 to 40. She demonstrates marked osteopenia of the neck region and moderate to marked osteopenia of the total hip region of the left hip. IMPRESSION Impression: The patient demonstrates osteoporosis of the lumbar spine and significant osteopenia of the left hip. This puts her at a significant increased risk for future fragility fracture in both regions. The level of osteopenia in the lumbar spine does represent a significant acceleration of bone mineral loss for patient's age. This could be secondary to a metabolic bone disease. Further diagnostic and therapeutic measures might be considered in an effort to prevent further bone mineral loss. Consideration might also be given to repeating this examination in approximately two years. us Alyse Leon DO DIAGNOSTIC IMAGING OR DERABLES Final Result from Last 3 Months or Most Recently Relevant to Health Maintenance Care Teams Gas Adjuster Relationship Specialty Start Date End Date Gali Figueroa NP [address] [facility] [place] [address] PCP - General NURSE PRACTITIONER 07/05/17
--- OUTSIDE RECORDS SUMMARY | 2025-01-08 23:14 | XMS_ITS | Encounter Summary ---
Author Organization [facility] Address [address] [place] [address] Care Team Providers Care Research Compliance Specialist Name Role Phone Gali Figueroa GREEN MARKETING SPECIALIST Primary Care Provider +1 [phone] Encounter Details Date Type Department Care Team (Latest Contact Info) Description 08/06/2004 Outpatient Historical [facility] Operating Room [address] [place] [address] Shade Kaplan MD [address] [place] [address] PROLIF RETINOPATHY NEC (Primary Dx) Social History Tobacco Use Types Packs/Day Years Used Date Smoking Tobacco: Never Assessed Comments Unknown Sex and Gender Information Value Date Recorded Sex Assigned at Not on file Legal Sex Female 4:42 AM CONCRETE TECHNICIAN Gender Identity Not on file Sexual Orientation Not on file documented as of this encounter Plan of Treatment Not on file documented as of this encounter Procedures Procedure Name Priority Date/Time Associated Diagnosis Comments BASIC METABOLIC PANEL Routine 08/06/2004 7:42 AM CONCRETE TECHNICIAN documented in this encounter Results * BASIC METABOLIC PANEL (08/06/2004 7:42 AM CONCRETE TECHNICIAN) GLUCOSE 97 70 - 110 mg/dL INTERFACE SYSTEM BUN 13 7 - 17 mg/dL INTERFACE SYSTEM CREATININE 0.7 0.7 - 1.2 mg/dL (inactive) INTERFACE SYSTEM SODIUM 142 136 - 145 mEq/L INTERFACE SYSTEM POTASSIUM 4.0 3.5 - 5.0 mEq/L INTERFACE SYSTEM CHLORIDE 105 95 - 110 mEq/L INTERFACE SYSTEM CO2 28 22 - 32 mmol/l INTERFACE SYSTEM ANION GAP 13 9 - 20 mEq/L INTERFACE SYSTEM OSMOLALITY, CALCULATED 292 275 - 295 mOsm/Kg INTERFACE SYSTEM CALCIUM 9.3 8.4 - 10.5 mg/dL INTERFACE SYSTEM 08/06/2004 7:42 AM CONCRETE TECHNICIAN us X Yina Kaplan MD CHEMISTRY ORDERABLES Final Resu lt INTERFACE SYSTEM Refer to clinic/hospital department documented in this encounter Visit Diagnoses Diagnosis Other nondiabetic proliferative retinopathy- Primary documented in this encounter Care Teams Research Compliance Specialist Relationship Specialty Start Date End Date Gali Figueroa NP PCP - General NURSE PRACTITIONER 07/05/17 documented as of this encounter
--- OUTSIDE RECORDS SUMMARY | 2025-01-08 23:14 | XMS_ITS | Encounter Summary ---
Author Organization [facility] Address [address] [place] [address] Care Team Providers Care Crm Dynamics Developer Name Role Phone Gali Figueroa CORPORATE SALES MANAGER Primary Care Provider +1 [phone] Encounter Details Date Type Department Care Team (Latest Contact Info) Description 08/14/2004 Outpatient Historical [facility] Ophthalmology [address] [place] [address] [place] [address] [place] [phone] Sinan Kaplan MD [address] [place] [address] [place] [address] [phone] DETACHMNT W DEFECT NOS (Primary Dx) Social History Tobacco Use Types Packs/Day Years Used Date Smoking Tobacco: Never Assessed Comments Unknown Sex and Gender Information Value Date Recorded Sex Assigned at Not on file Legal Sex Female 4:42 AM LIBRARY CIRCULATION DEPARTMENT CHIEF Gender Identity Not on file Sexual Orientation Not on file documented as of this encounter Plan of Treatment Not on file documented as of this encounter Visit Diagnoses Diagnosis Retinal detachment with retinal defect, unspecified- Primary documented in this encounter Care Teams Crm Dynamics Developer Relationship Specialty Start Date End Date Gali Figueroa NP PCP - General NURSE PRACTITIONER 07/05/17 documented as of this encounter
--- OUTSIDE RECORDS SUMMARY | 2025-01-08 23:14 | XMS_ITS | Encounter Summary ---
Author Organization [facility] Address [address] [place] [address] Care Team Providers Care Internal Consultant Name Role Phone Gali Figueroa UNDER PRESSER Primary Care Provider +1 -[phone] Encounter Details Date Type Department Care Team (Latest Contact Info) Description 06/26/2004 Outpatient Historical [facility] Ophthalmology [address] [place] [address] [place] [address] [place] [phone] Sinan Kaplan MD [address] [place] [address] [place] [phone] DETACHMNT W DEFECT NOS (Primary Dx) Social History Tobacco Use Types Packs/Day Years Used Date Smoking Tobacco: Never Assessed Comments Unknown Sex and Gender Information Value Date Recorded Sex Assigned at Not on file Legal Sex Female 4:42 AM CASEWORKER Gender Identity Not on file Sexual Orientation Not on file documented as of this encounter Plan of Treatment Not on file documented as of this encounter Visit Diagnoses Diagnosis Retinal detachment with retinal defect, unspecified- Primary documented in this encounter Care Teams Internal Consultant Relationship Specialty Start Date End Date Gali Figueroa NP PCP - General NURSE PRACTITIONER 07/05/17 documented as of this encounter
--- OUTSIDE RECORDS SUMMARY | 2025-01-08 23:14 | XMS_ITS | Encounter Summary ---
Author Organization [facility] Address [address] [place] [address] Care Team Providers Care Computer Service Technician Name Role Phone Gali Figueroa SUPERVISOR MIRROR FABRICATION Primary Care Provider +1 -[phone] Encounter Details Date Type Department Care Team (Latest Contact Info) Description 11/19/[address] [facility] Operating Room [address] [place] [address] Shade Kaplan MD [address] [place] [address] RETINAL DETACHMENT NEC (Primary Dx) Social History Tobacco Use Types Packs/Day Years Used Date Smoking Tobacco: Never Assessed Comments Unknown Sex and Gender Information Value Date Recorded Sex Assigned at Not on file Legal Sex Female 4:42 AM VICE PRESIDENT OF SOFTWARE ENGINEERING Gender Identity Not on file Sexual Orientation Not on file documented as of this encounter Plan of Treatment Not on file documented as of this encounter Visit Diagnoses Diagnosis Other forms of retinal detachment(361.89)- Primary Other forms of retinal detachment documented in this encounter Care Teams Computer Service Technician Relationship Specialty Start Date End Date Gali Figueroa NP PCP - General NURSE PRACTITIONER 07/05/17 documented as of this encounter
--- OUTSIDE RECORDS SUMMARY | 2025-01-08 23:14 | XMS_ITS | Encounter Summary ---
Author Organization [facility] Address [address] [place] [address] Care Team Providers Care Pre Owned Sales Manager Name Role Phone Gali Figueroa CHIEF ENGINEER PRODUCTION Primary Care Provider +1 -[phone] Encounter Details Date Type Department Care Team (Latest Contact Info) Description 10/16/2004 Outpatient Historical [facility] Ophthalmology [address] [place] [address] [place] [phone] Sinan Kaplan MD [address] [place] [address] Vitreous membranes (Primary Dx); DETACHMNT W DEFECT NOS Social History Tobacco Use Types Packs/Day Years Used Date Smoking Tobacco: Never Assessed Comments Unknown Sex and Gender Information Value Date Recorded Sex Assigned at Not on file Legal Sex Female 4:42 AM OCCUPATIONAL THERAPIST REHAB MANAGER Gender Identity Not on file Sexual Orientation Not on file documented as of this encounter Plan of Treatment Not on file documented as of this encounter Visit Diagnoses Diagnosis Vitreous membranes- Primary Vitreous membranes and strands Retinal detachment with retinal defect, unspecified documented in this encounter Care Teams Pre Owned Sales Manager Relationship Specialty Start Date End Date Gali Figueroa NP PCP - General NURSE PRACTITIONER 07/05/17 documented as of this encounter
--- OUTSIDE RECORDS SUMMARY | 2025-01-08 23:14 | XMS_ITS | Encounter Summary ---
Author Organization [facility] Address [address] [place] [address] Care Team Providers Care Hardwood Floor Installer Name Role Phone Gali Figueroa NP Primary Care Provider +1 [phone] Encounter Details Date Type Department Care Team (Latest Contact Info) Description 06/25/2004 Outpatient Historical [facility] Operating Room [address] [place] [address] Shade Kaplan MD [address] [place] [address] DETACHMNT W DEFECT NOS (Primary Dx) Social History Tobacco Use Types Packs/Day Years Used Date Smoking Tobacco: Never Assessed Comments Unknown Sex and Gender Information Value Date Recorded Sex Assigned at Not on file Legal Sex Female 4:42 AM CHEF MANAGER Gender Identity Not on file Sexual Orientation Not on file documented as of this encounter Plan of Treatment Not on file documented as of this encounter Procedures Procedure Name Priority Date/Time Associated Diagnosis Comments CBC WITH DIFFERENTIAL Routine 06/25/2004 7:23 AM CHEF MANAGER PROTIME-INR Routine 06/25/2004 7:23 AM CHEF MANAGER BASIC METABOLIC PANEL Routine 06/25/2004 7:22 AM CHEF MANAGER documented in this encounter Results * PROTIME-INR (06/25/2004 7:23 AM CHEF MANAGER) PROTIME 12.6 12.4 - 14.9 Secs INTERFACE SYSTEM Comment: As of 03 note change in normal range. INR 0.9 INTERFACE SYSTEM Comment: Expected Values for INR: DVT/PE Goal INR 2.5; range 2.0 - 3.0 Valve Replacement Tissue Goal INR 2.5; range 2.0 - 3.0 Mechanical Goal INR 3.0; range 2.5 - 3.5 POST-MT Goal INR 2.5; range 2.0 - 3.0 or Goal 3.0; range 2.5 - 3.5 Atrial Fibrillation Goal INR 2.5; range 2.0 - 3.0 Ischemic Stroke Goal INR 2.5; range 2.0 - 3.0 For additional information see Guidelines for Anticoagulation available from the pharmacy [facility] 06/25/2004 7:23 AM CHEF MANAGER us X Yina Kaplan MD HEMATOLOGY ORDERABLES Final Res ult INTERFACE SYSTEM Refer to clinic/hospital department * (ABNORMAL) CBC WITH DIFFERENTIAL (06/25/2004 7:23 AM CHEF MANAGER) WBC 3.2(L) 4.8 - 10.8 K/ul INTERFACE SYSTEM RBC 4.82 4.20 - 5.40 Mil/ul INTERFACE SYSTEM HEMOGLOBIN 13.9 12.0 - 16.0 g/dL INTERFACE SYSTEM HEMATOCRIT 42.0 36.0 - 46.0 % INTERFACE SYSTEM MCV 87.1 84.0 - 103.0 Fl INTERFACE SYSTEM MCH 28.8 27.0 - 34.0 pg INTERFACE SYSTEM MCHC 33.1 30.0 - 35.0 g/dL INTERFACE SYSTEM RDW 12.9 11.0 - 14.5 percent(in active) INTERFACE SYSTEM PLATELETS 211 140 - 440 K/ul INTERFACE SYSTEM MPV 9.8 8.9 - 12.8 Fl INTERFACE SYSTEM NEUTROPHILS 48.7 42.2 - 75.2 percent(in active) INTERFACE SYSTEM LYMPHOCYTES 41.9 24.0 - 44.0 percent(in active) INTERFACE SYSTEM MONOCYTES 6.3 2.0 - 10.0 percent(in active) INTERFACE SYSTEM EOSINOPHILS 2.8 0.0 - 7.0 % INTERFACE SYSTEM BASOPHILS 0.3 0.0 - 1.0 percent(in active) INTERFACE SYSTEM NEUTROPHIL ABSOLUTE 1.6(L) 2.0 - 8.0 K/uL INTERFACE SYSTEM LYMPHOCYTE ABSOLUTE 1.3 1.2 - 4.0 K/ul INTERFACE SYSTEM MONOCYTE ABSOLUTE 0.2 0.1 - 0.6 K/ul INTERFACE SYSTEM EOSINOPHIL ABSOLUTE 0.1 0.0 - 0.7 K/ul INTERFACE SYSTEM BASOPHILS ABSOLUTE 0.0 0.0 - 0.2 K/ul INTERFACE SYSTEM 06/25/2004 7:23 AM CHEF MANAGER us X Yina Kaplan MD HEMATOLOGY ORDERABLES Final Res ult Performing Organization Address [facility] Phone Number INTERFACE SYSTEM Refer to clinic/hospital department * (ABNORMAL) BASIC METABOLIC PANEL (06/25/2004 7:22 AM CHEF MANAGER) GLUCOSE 117(H) 70 - 110 mg/dL INTERFACE SYSTEM BUN 15 7 - 17 mg/dL INTERFACE SYSTEM CREATININE 0.7 0.7 - 1.2 mg/dL (inactive) INTERFACE SYSTEM SODIUM 137 136 - 145 mEq/L INTERFACE SYSTEM POTASSIUM 3.8 3.5 - 5.0 mEq/L INTERFACE SYSTEM CHLORIDE 108 95 - 110 mEq/L INTERFACE SYSTEM CO2 25 22 - 32 mmol/l INTERFACE SYSTEM ANION GAP 8(L) 9 - 20 mEq/L INTERFACE SYSTEM OSMOLALITY, CALCULATED 284 275 - 295 mOsm/Kg INTERFACE SYSTEM CALCIUM 8.7 8.4 - 10.5 mg/dL INTERFACE SYSTEM 06/25/2004 7:22 AM CHEF MANAGER us Shade Kaplan MD CHEMISTRY ORDERABLES Final Resu lt Performing Organization Address [facility] Phone Number INTERFACE SYSTEM Refer to clinic/hospital department documented in this encounter Visit Diagnoses Diagnosis Retinal detachment with retinal defect, unspecified- Primary documented in this encounter Care Teams Hardwood Floor Installer Relationship Specialty Start Date End Date Gali Figueroa NP PCP - General NURSE PRACTITIONER 07/05/17 documented as of this encounter
--- OUTSIDE RECORDS SUMMARY | 2025-01-08 23:14 | XMS_ITS | Encounter Summary ---
Author Organization [facility] Address [address] [place] [address] Care Team Providers Care Acid Plant Helper Name Role Phone Gali Figueroa NP Primary Care Provider +1 [phone] Encounter Details Date Type Department Care Team (Latest Contact Info) Description 11/13/2004 Outpatient Historical [facility] [address] [place] [address] [place] [address] Shade Kaplan MD [address] [place] [address] PREOP CARDIOVASC EXAM (Primary Dx) Social History Tobacco Use Types Packs/Day Years Used Date Smoking Tobacco: Never Assessed Comments Unknown Sex and Gender Information Value Date Recorded Sex Assigned at Not on file Legal Sex Female 4:42 AM MARKETING CAMPAIGN ANALYST Gender Identity Not on file Sexual Orientation Not on file documented as of this encounter Plan of Treatment Not on file documented as of this encounter Procedures Procedure Name Priority Date/Time Associated Diagnosis Comments COMPREHENSIVE METABOLIC PANEL Routine 11/13/2004 12:34 PM CDT CBC WITH DIFFERENTIAL Routine 11/13/2004 12:33 PM CDT documented in this encounter Results * COMPREHENSIVE METABOLIC PANEL (11/13/2004 12:34 PM CDT) GLUCOSE 99 70 - 110 mg/dL INTERFACE SYSTEM BUN 13 7 - 17 mg/dL INTERFACE SYSTEM CREATININE 0.7 0.7 - 1.2 mg/dL INTERFACE SYSTEM SODIUM 140 136 - 145 mEq/L INTERFACE SYSTEM POTASSIUM 3.6 3.5 - 5.0 mEq/L INTERFACE SYSTEM CO2 25 22 - 32 mmol/l INTERFACE SYSTEM CHLORIDE 104 95 - 110 mEq/L INTERFACE SYSTEM CALCIUM 8.8 8.4 - 10.5 mg/dL INTERFACE SYSTEM ALKALINE PHOSPHATASE 78 38 - 126 IU/L INTERFACE SYSTEM TOTAL PROTEIN 7.5 6.3 - 8.2 g/dL INTERFACE SYSTEM ALBUMIN 3.9 3.5 - 5.0 g/dL INTERFACE SYSTEM AST 29 14 - 36 IU/L INTERFACE SYSTEM ALT 14 9 - 52 IU/L INTERFACE SYSTEM BILIRUBIN TOTAL 0.4 0.2 - 1.4 mg/dL INTERFACE SYSTEM GLOBULIN (CALC) 3.6 2.4 - 3.9 g/dL INTERFACE SYSTEM ANION GAP 15 9 - 20 mEq/L INTERFACE SYSTEM ALBUMIN/GLOBULIN RATIO 1.1 1.0 - 2.3 INTERFACE SYSTEM OSMOLALITY, CALCULATED 287 275 - 295 mOsm/Kg INTERFACE SYSTEM 11/13/2004 12:3 4 PM CDT us X Yina Kaplan MD CHEMISTRY ORDERABLES Final Resu lt INTERFACE SYSTEM Refer to clinic/hospital department * (ABNORMAL) CBC WITH DIFFERENTIAL (11/13/2004 12:33 PM CDT) WBC 3.6(L) 4.8 - 10.8 K/ul INTERFACE SYSTEM RBC 4.45 4.20 - 5.40 Mil/ul INTERFACE SYSTEM HEMOGLOBIN 12.5 12.0 - 16.0 g/dL INTERFACE SYSTEM HEMATOCRIT 37.6 36.0 - 46.0 % INTERFACE SYSTEM MCV 84.5 84.0 - 103.0 Fl INTERFACE SYSTEM MCH 28.1 27.0 - 34.0 pg INTERFACE SYSTEM MCHC 33.2 30.0 - 35.0 g/dL INTERFACE SYSTEM RDW 13.0 11.0 - 14.5 % INTERFACE SYSTEM PLATELETS 218 140 - 440 K/ul INTERFACE SYSTEM MPV 9.2 8.9 - 12.8 Fl INTERFACE SYSTEM NEUTROPHILS 46.3 42.2 - 75.2 % INTERFACE SYSTEM LYMPHOCYTES 43.6 24.0 - 44.0 % INTERFACE SYSTEM MONOCYTES 6.4 2.0 - 10.0 % INTERFACE SYSTEM EOSINOPHILS 3.1 0.0 - 7.0 % INTERFACE SYSTEM BASOPHILS 0.6 0.0 - 1.0 % INTERFACE SYSTEM NEUTROPHIL ABSOLUTE 1.7(L) 2.0 - 8.0 K/uL INTERFACE SYSTEM LYMPHOCYTE ABSOLUTE 1.6 1.2 - 4.0 K/ul INTERFACE SYSTEM MONOCYTE ABSOLUTE 0.2 0.1 - 0.6 K/ul INTERFACE SYSTEM EOSINOPHIL ABSOLUTE 0.1 0.0 - 0.7 K/ul INTERFACE SYSTEM BASOPHILS ABSOLUTE 0.0 0.0 - 0.2 K/ul INTERFACE SYSTEM 11/13/2004 12:3 3 PM CDT us X Yina Kaplan MD HEMATOLOGY ORDERABLES Final Res ult INTERFACE SYSTEM Refer to clinic/hospital department documented in this encounter Visit Diagnoses Diagnosis Pre-operative cardiovascular examination- Primary documented in this encounter Care Teams Acid Plant Helper Relationship Specialty Start Date End Date Gali Figueroa NP PCP - General NURSE PRACTITIONER 07/05/17 documented as of this encounter
--- OUTSIDE RECORDS SUMMARY | 2025-01-08 23:14 | XMS_ITS | Encounter Summary ---
Author Organization [facility] Address [address] [place] [address] Care Team Providers Care Drier Helper Name Role Phone Gali Figueroa LAND SURVEYOR ASSISTANT Primary Care Provider +1 -[phone] Encounter Details Date Type Department Care Team (Latest Contact Info) Description 12/30/2004 Outpatient Historical [facility] Ophthalmology [address] [place] [phone] Sinan Kaplan MD [address] [place] [address] DETACHMNT W DEFECT NOS (Primary Dx) Social History Tobacco Use Types Packs/Day Years Used Date Smoking Tobacco: Never Assessed Comments Unknown Sex and Gender Information Value Date Recorded Sex Assigned at Not on file Legal Sex Female 4:42 AM DETENTION SERGEANT Gender Identity Not on file Sexual Orientation Not on file documented as of this encounter Plan of Treatment Not on file documented as of this encounter Visit Diagnoses Diagnosis Retinal detachment with retinal defect, unspecified- Primary documented in this encounter Care Teams Drier Helper Relationship Specialty Start Date End Date Gali Figueroa NP PCP - General NURSE PRACTITIONER 07/05/17 documented as of this encounter
--- OUTSIDE RECORDS SUMMARY | 2025-01-08 23:14 | XMS_ITS | Encounter Summary ---
Author Organization [facility] Address [address] [place] [address] Care Team Providers Care Quality Compliance Consultant Name Role Phone Gali Figueroa WINDING LATHE OPERATOR Primary Care Provider +1 [phone] Encounter Details Date Type Department Care Team (Latest Contact Info) Description 11/25/2004 Outpatient Historical [facility] Ophthalmology [address] [place] [address] [place] [phone] Sinan Kaplan MD [address] [place] [address] DETACHMNT W DEFECT NOS (Primary Dx) Social History Tobacco Use Types Packs/Day Years Used Date Smoking Tobacco: Never Assessed Comments Unknown Sex and Gender Information Value Date Recorded Sex Assigned at Not on file Legal Sex Female 4:42 AM RADIATION THERAPIST Gender Identity Not on file Sexual Orientation Not on file documented as of this encounter Plan of Treatment Not on file documented as of this encounter Visit Diagnoses Diagnosis Retinal detachment with retinal defect, unspecified- Primary documented in this encounter Care Teams Quality Compliance Consultant Relationship Specialty Start Date End Date Gali Figueroa NP PCP - General NURSE PRACTITIONER 07/05/17 documented as of this encounter
--- OUTSIDE RECORDS SUMMARY | 2025-01-08 23:14 | XMS_ITS | Encounter Summary ---
Author Organization [facility] Address [address] [place] [address] Care Team Providers Care Tube Blower Name Role Phone Gali Figueroa RUSSIAN HISTORY PROFESSOR Primary Care Provider +1 -[phone] Encounter Details Date Type Department Care Team (Latest Contact Info) Description 10/29/2004 Outpatient Historical [facility] Operating Room [address] [place] [address] Shade Kaplan MD [address] [place] [address] SENILE CATARACT NOS (Primary Dx) Social History Tobacco Use Types Packs/Day Years Used Date Smoking Tobacco: Never Assessed Comments Unknown Sex and Gender Information Value Date Recorded Sex Assigned at Not on file Legal Sex Female 4:42 AM MEDICAL MALPRACTICE PARALEGAL Gender Identity Not on file Sexual Orientation Not on file documented as of this encounter Plan of Treatment Not on file documented as of this encounter Visit Diagnoses Diagnosis Senile cataract, unspecified- Primary documented in this encounter Care Teams Tube Blower Relationship Specialty Start Date End Date Gali Figueroa NP PCP - General NURSE PRACTITIONER 07/05/17 documented as of this encounter
--- OUTSIDE RECORDS SUMMARY | 2025-01-08 23:14 | XMS_ITS | Encounter Summary ---
Author Organization [facility] Address [address] [place] [address] Care Team Providers Care Lead Care Manager Name Role Phone Gali Figueroa LIGHT TRUCK DRIVER Primary Care Provider +1 -[phone] Encounter Details Date Type Department Care Team (Latest Contact Info) Description 06/24/2004 Outpatient Historical [facility] Ophthalmology [address] [place] [address] [place] [address] [place] [phone] Sinan Kaplan MD [address] [place] [address] [place] [address] Vitreous membranes (Primary Dx); DETACHMNT W DEFECT NOS Social History Tobacco Use Types Packs/Day Years Used Date Smoking Tobacco: Never Assessed Comments Unknown Sex and Gender Information Value Date Recorded Sex Assigned at Not on file Legal Sex Female 4:42 AM PUBLIC HEALTH ADMINISTRATOR Gender Identity Not on file Sexual Orientation Not on file documented as of this encounter Plan of Treatment Not on file documented as of this encounter Visit Diagnoses Diagnosis Vitreous membranes- Primary Vitreous membranes and strands Retinal detachment with retinal defect, unspecified documented in this encounter Care Teams Lead Care Manager Relationship Specialty Start Date End Date Gali Figueroa NP PCP - General NURSE PRACTITIONER 07/05/17 documented as of this encounter
--- OUTSIDE RECORDS SUMMARY | 2025-01-08 23:14 | XMS_ITS | Clinical Summary ---
Author Organization [facility] Address [address] [place] [address] Care Team Providers Care Siebel Crm Developer Name Role Phone Gali Figueroa NP Primary Care Provider +1 -[phone] Allergies Active Allergy Reactions Criticality Noted Date Comments Pseudoephedrine Hcl Nausea and Vomiting Low 010 Medications loratadine (CLARITIN) 10 mg tabletIndications :Allergic rhinitis Take 1 Tab by mouth daily. 30 Tab 11 4 Active ASPIRIN/SOD BICARB/CITRIC ACID (ALEXIS-SELTZER ORAL)Indications: HTN (hypertension) Take by mouth 1 time daily as needed. Active hydrochlorothiazi de (MICROZIDE) 12.5 mg capsuleIndication s:HTN (hypertension) Take 1 Cap by mouth daily. 30 Cap 11 4 Active alendronate (FOSAMAX) 70 mg tabletIndications :Osteoporosis, post-menopausal Take 1 Tab by mouth every 7 days. empty stomach before other meds,with 8oz of water, stay upright 30 min 4 Tab 11 4 Active amLODIPine (NORVASC) 5 mg tabletIndications :Unspecified essential hypertension Take 1 Tab by mouth daily. 30 Tab 11 5 Active lisinopril (PRINIVIL) 20 mg tabletIndications :Unspecified essential hypertension Take 1 Tab (20 mg) by mouth daily. 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 Bilateral hand pain 06/27/2012 Osteoarthritis 06/27/2012 Family History Medical History Relation Name Comments Heart Disease Brother Cancer Father Cancer Mother Heart Disease Son High Cholesterol Son Hypertension Son Stroke Son Relation Name Status Comments Brother Father Mother Son Alive Social History Tobacco Use Types Packs/Day Years Used Date Smoking Tobacco: Never Smokeless Tobacco: Current Chew Tobacco Cessation:Ready to Q uit: No; Counseling Given: No Alcohol Use Standard Drinks/Week Comments No 0 (1 standard drink = 0.6 oz pur e alcohol) Comments No Sex and Gender Information Value Date Recorded Sex Assigned at Not on file Legal Sex Female 4:42 AM BRAKE REPAIRER BUS Gender Identity Not on file Sexual Orientation Not on file Occupation Industry Job Start Date Job End Date Not on file Not on file Not on file Not on file Last Filed Vital Signs Vital Sign Reading Time Taken Comments Blood Pressure 128/80 10/24/2017 1:25 PM CDT Pulse 62 10/24/2017 1:25 PM CDT Temperature 35.9 C (96.6 F) 10/24/2017 1:25 PM CDT Respiratory Rate 15 11/21/2013 10:29 AM CDT Oxygen Saturation 99% 10/24/2017 1:25 PM CDT Inhaled Oxygen Concentration - - Weight 49 kg (108 lb) 11/03/2017 12:38 PM CDT Height 162.6 cm (5' 4 ) 11/03/2017 12:38 PM CDT Body Mass Index 18.54 11/03/2017 12:38 PM CDT Plan of Treatment Health Maintenance Due Date Last Done Comments DTAP/TDAP/TD VACCINES (1 - Tdap) 1958 PNEUMOCOCCAL VACCINE 50+ YEARS (1 of 1 - PCV) 06/28/18 90 ZOSTER VACCINE (1 of 2) 1989 RSV VACCINE (60+ or ) (1 - 1-dose 75+ series) 2014 OSTEOPOROSIS SCREENING 07/10/2017 07/10/2012 INFLUENZA VACCINE (#1) 2025 Procedures Procedure Name Priority Date/Time Associated Diagnosis Comments XR DEXA BONE DENSITY AXIAL 1 OR MORE SITES Routine 07/10/2012 12:17 PM BRAKE REPAIRER BUS Osteoporosis, post-menopausal from Last 3 Months or Most Recently Relevant to Health Maintenance Results * XR DEXA BONE DENSITY AXIAL 1 OR MORE SITES (07/10/2012 12:17 PM BRAKE REPAIRER BUS) Anatomical Region Laterality Modality Nuclear Medicine 07/10/2012 12:0 1 PM BRAKE REPAIRER BUS Impressions 07/10/2012 2:00 PM BRAKE REPAIRER BUS Impression: The patient demonstrates osteoporosis of the [...] approximately two years. Narrative 07/10/2012 2:00 PM BRAKE REPAIRER BUS DEXA Evaluation of the Lumbar Spine and [...] hip. Procedure Note Flynn Stephen MD - 07/10/2012 DEXA Evaluation of the Lumbar Spine and [...] or Most Recently Relevant to Health Maintenance Insurance [address] [place] [address] [place] Care Teams Siebel Crm Developer Relationship Specialty Start Date End Date Gali Figueroa NP PCP - General NURSE PRACTITIONER 07/05/17
--- OUTSIDE RECORDS SUMMARY | 2025-01-08 23:14 | XMS_ITS | Encounter Summary ---
Author Organization [facility] Address [address] [place] [address] Care Team Providers Care Public Relations Name Role Phone Gali Figueroa CONSULTING ENGINEER Primary Care Provider +1 -[phone] Encounter Details Date Type Department Care Team (Latest Contact Info) Description 08/07/2004 Outpatient Historical [facility] Ophthalmology [address] [place] [phone] Sinan Kaplan MD [address] [place] [address] [phone] DETACHMNT W DEFECT NOS (Primary Dx) Social History Tobacco Use Types Packs/Day Years Used Date Smoking Tobacco: Never Assessed Comments Unknown Sex and Gender Information Value Date Recorded Sex Assigned at Not on file Legal Sex Female 4:42 AM ELDER COUNSELOR Gender Identity Not on file Sexual Orientation Not on file documented as of this encounter Plan of Treatment Not on file documented as of this encounter Visit Diagnoses Diagnosis Retinal detachment with retinal defect, unspecified- Primary documented in this encounter Care Teams Public Relations Relationship Specialty Start Date End Date Gali Figueroa NP PCP - General NURSE PRACTITIONER 07/05/17 documented as of this encounter
--- OUTSIDE RECORDS SUMMARY | 2025-01-08 23:14 | XMS_ITS | Encounter Summary ---
Author Organization [facility] Address [address] [place] [address] Care Team Providers Care Packaging Operator Name Role Phone HenryGali Rossy BABAK Primary Care Provider +1 -[phone] Encounter Details Date Type Department Care Team (Latest Contact Info) Description 07/05/2017 Ancillary Orders [facility] Orthopedics - [facility] [address] [place] [address] Jonh Alan MD NO ADDRESS ON FILE Low back pain, unspecified back pain laterality, unspecified chronicity, with sciatica presence unspecified Social History Tobacco Use Types Packs/Day Years Used Date Smoking Tobacco: Never Smokeless Tobacco: Current Chew Alcohol Use Standard Drinks/Week Comments No 0 (1 standard drink = 0.6 oz pur e alcohol) Comments No Sex and Gender Information Value Date Recorded Sex Assigned at Not on file Legal Sex Female 4:42 AM NATIONAL GUARD MEMBER Gender Identity Not on file Sexual Orientation Not on file Occupation Industry Job Start Date Job End Date Not on file Not on file Not on file Not on file documented as of this encounter Plan of Treatment Not on file documented as of this encounter Results * XR THORACIC SPINE 2 VW (07/05/2017 9:50 AM NATIONAL GUARD MEMBER) Anatomical Region Laterality Modality Spine Computed Radiogr aphy Narrative 07/06/2017 12:45 PM NATIONAL GUARD MEMBER X-rays of the thoracic spine reveal osteoporosis. Possibly an upper thoracic spine compression fracture. Jonh Alan MD DIAGNOSTIC IMAGING ORDERABLES Fi nal Result documented in this encounter Visit Diagnoses Diagnosis Low back pain, unspecified back pain laterality, unspecified chronicity, with sciatica presence unspecified Low back pain, unspecified back pain laterality, unspecified chronicity, with sciatica presence unspecified documented in this encounter Care Teams Packaging Operator Relationship Specialty Start Date End Date Gali Figueroa NP PCP - General NURSE PRACTITIONER 07/05/17 documented as of this encounter
--- OUTSIDE RECORDS SUMMARY | 2025-01-08 23:14 | XMS_ITS | Encounter Summary ---
Author Organization [facility] Address [address] [place] [address] Care Team Providers Care Curtain Stretcher Assembler Name Role Phone Gali Figueroa CARD LACER Primary Care Provider +1 -[phone] Encounter Details Date Type Department Care Team (Latest Contact Info) Description 07/01/2004 Outpatient Historical [facility] Ophthalmology [address] [place] [address] [place] [address] [place] [phone] Sinan Kaplan MD [address] [place] [address] [place] [address] [phone] DETACHMNT W DEFECT NOS (Primary Dx) Social History Tobacco Use Types Packs/Day Years Used Date Smoking Tobacco: Never Assessed Comments Unknown Sex and Gender Information Value Date Recorded Sex Assigned at Not on file Legal Sex Female 4:42 AM HOME HEALTH CLINICAL SUPERVISOR Gender Identity Not on file Sexual Orientation Not on file documented as of this encounter Plan of Treatment Not on file documented as of this encounter Visit Diagnoses Diagnosis Retinal detachment with retinal defect, unspecified- Primary documented in this encounter Care Teams Curtain Stretcher Assembler Relationship Specialty Start Date End Date Gali Figueroa NP PCP - General NURSE PRACTITIONER 07/05/17 documented as of this encounter
[2025-01-08 23:25] VITALS: BP 128/84; PULSE 80; RESP 17; TEMP 37.4; O2SAT 98
--- NOTE | 2025-01-08 23:34 | PC.NURSE ---
pts weight 112.8lbs
--- NOTE | 2025-01-08 23:38 | ED_ITS ---
HPI - Extremity Problem General: Chief complaint: Extremity Injury, Upper Stated complaint: LT hand swelling Time Seen by Provider: 01/08/25 23:29 History of Present Illness: Patient comes in with swelling and redness of her left hand. States that she woke up a couple of days ago and noticed it was swelling and red. States that it is got progressively worse over the last couple of days. She does have a cat scratch on the back of her hand. On physical exam she has swelling with redness that is warm to touch of her left hand. Neurovascularly intact. Patient denies any trauma. Will start her on antibiotics, and discharged with precautions return for worsening or changing symptoms. Related Data Previous Rx's ?Medication ?Instructions ?Recorded hydrocodone 5 mg-acetaminophen 325 1 tab PO Q6H PRN pa in #14 tabs 10/24/21 mg tablet ondansetron 4 mg disintegrating 4 mg PO Q6H PRN nausea and 10/24/21 tablet vomiting #14 tabs amoxicillin 875 mg-potassium 1 tab PO BID #28 tabs 10/28 clavulanate 125 mg tablet Allergies Allergy/AdvReac Type Severity Reaction Status Date / Time No Known Allergies Allergy Verified 04/12/21 19:05 Review of Systems Musc: Reports: other (Left hand pain and swelling) [facility] ED PFSH: Medical History (Updated 01/08/25 @ 23:39 by Bandar Mckeon MD) No pertinent past medical history Social History (Updated 10/24/21 @ 10:04 by Nohemi Hull MD) Substance/Drug Use: never Physical Exam Extremity: NARRATIVE EXTREMITY EXAM: Swelling, erythema, warmth to touch of the left hand Course Vital Signs: Vital signs: Vital Signs Temperature 99.3 F 01/08/25 23:25 Pulse Rate 80 01/08/25 23:25 Respiratory Rate 17 01/08/25 23:25 Blood Pressure 128/84 01/08/25 23:25 Pulse Oximetry 98 01/08/25 23:25 Oxygen Delivery Me thod Room Air 01/08/25 23:25 MDM - Extremity (Nontraumatic) Medical Decision Making n No radiology studies performed this visit Discharge Plan Discharge Patient Disposition: Home Clinical Impression: Cellulitis of hand Condition: Stable Prescriptions: New amoxicillin-pot clavulanate 875-125 mg tablet 1 tab PO BID Qty: 28 0RF No Action hydrocodone-acetaminophen 5-325 mg tablet 1 tab PO Q6H PRN (Reason: pain) Qty: 14 0RF ondansetron 4 mg tablet,disintegrating 4 mg PO Q6H PRN (Reason: nausea and vomiting) Qty: 14 0RF Discharge Orders: Discharge ED (Routine); Ordered 01/08/25 Ordered By: Bandar Mckeon Referrals: Gali Figueroa FNP [Primary Care Provider, Nurse Practitioner] Patient Instructions: Cellulitis (ED), Patient Portal & Addi Instructions Print Language: Ukrainian Coding Level of Care Code ED Continuous Drier Helper for Kaleb Patino
[2025-01-08 23:55] VITALS: BP 122/85; PULSE 82; RESP 16; O2SAT 97
--- NOTE | 2025-01-09 00:04 | W.ED.EXTPRO ---
HPI - Extremity Problem General: Chief complaint: Extremity Injury, Upper Stated complaint: LT hand swelling Time Seen by Provider: 01/08/25 23:29 History of Present Illness: Patient comes in with pain and swelling of her left hand for the past couple of days. States she woke up and noticed her left hand with swelling. States she also was scratched by a cat. On physical exam she has swelling, and erythema of her left hand. Will start her on antibiotics, and discharged with precautions to return for worsening or changing symptoms. Related Data Previous Rx's ?Medication ?Instructions ?Recorded hydrocodone 5 mg-acetaminophen 325 1 tab PO Q6H PRN pain #14 tabs 10/24/21 mg tablet ondansetron 4 mg disintegrating 4 mg PO Q6H PRN nausea and 10/24/21 tablet vomiting #14 tabs amoxicillin 875 mg-potassium 1 tab PO BID #28 tabs 01/08/25 clavulanate 125 mg tablet Allergies Allergy/AdvReac Type Severity Reaction Status Date / Time No Known Allergies Allergy Verified 04/12/21 19:05 Review of Systems Musc: Reports: other (Left hand pain and swelling) [facility] ED PFSH: Medical History (Updated 01/08/25 @ 23:39 by Bandar Mckeon MD) No pertinent past medical history Social History (Updated 10/24/21 @ 10:04 by Nohemi Hull MD) Substance/Drug Use: never Physical Exam Extremity: NARRATIVE EXTREMITY EXAM: Swelling, erythema, warmth to touch of the left hand Course Vital Signs: Vital signs: Vital Signs Temperature 99.3 F 01/08/25 23:25 Pulse Rate 82 01/08/25 23:55 Respiratory Rate 16 01/08/25 23:55 Blood Pressure 122/85 01/08/25 23:55 Pulse Oximetry 97 01/08/25 23:55 Oxygen Delivery Me thod Room Air 01/08/25 23:25 MDM - Extremity (Nontraumatic) Medical Decision Making n No radiology studies performed this visit Discharge Plan Discharge Patient Disposition: Home Clinical Impression: Cellulitis of hand Condition: Stable Prescriptions: New amoxicillin-pot clavulanate 875-125 mg tablet 1 tab PO BID Qty: 28 0RF No Action hydrocodone-acetaminophen 5-325 mg tablet 1 tab PO Q6H PRN (Reason: pain) Qty: 14 0RF ondansetron 4 mg tablet,disintegrating 4 mg PO Q6H PRN (Reason: nausea and vomiting) Qty: 14 0RF Discharge Orders: Discharge ED (Routine); Ordered 01/08/25 Ordered By: Bandar Mckeon Referrals: Gali Figueroa FNP [Primary Care Provider, Nurse Practitioner] Patient Instructions: Cellulitis (ED), Patient Portal & Addi Instructions Print Language: [place] Coding Level of Care Code ED Oss Architect for Kaleb Patino
== END 2025-01-08 23:58 | disposition home or self-care (01) ==
PROVIDERS: Emergency Provider Emergency Medicine; PCP Nurse Practitioner
DX: L03.114 Cellulitis of left upper limb (principal)
CPT/HCPCS: 99283; J9999

== ENCOUNTER → 2025-01-19 13:08 | Outpatient (BNVA) | payer MEDICAID, SELFPAY | PROVIDERS: PCP Nurse Practitioner; Visit Provider Family Medicine | DX: S69.92XA Unspecified injury of left wrist, hand and finger(s), initial encounter (principal); X58.XXXA Exposure to other specified factors, initial encounter | CPT/HCPCS: 73110 ==